=== PATIENT | female | born 1975 | race Hispanic/Latino ===

== ENCOUNTER 2022-05-28 12:48 | Outpatient (CLI) | payer BC ==
[2022-05-28 13:34] LABS: BHCG - Serum Negative (NEGATIVE)
[2022-05-28 13:35] LABS: Pregs Control Background? CLEAR/WHITE (CLR/WHITE); Pregs Control Bar Appear? YES (CONTROL BAR)
== END 2022-05-28 12:49 | disposition home or self-care (01) ==
LOC: NM 12:48
PROVIDERS: ATTEND Internal Medicine Endocrinology, Diabetes & Metabolism
DX: C73 Malignant neoplasm of thyroid gland (principal); E04.1 Nontoxic single thyroid nodule
CPT/HCPCS: 36415; 79005; 84703; A9517

== ENCOUNTER 2022-06-07 12:58 | Outpatient (CLI) | payer BC, OTHER | END 2022-06-07 12:59 | disposition home or self-care (01) | LOC: NM 12:58 | PROVIDERS: ATTEND Internal Medicine Endocrinology, Diabetes & Metabolism | DX: C73 Malignant neoplasm of thyroid gland (principal); E04.1 Nontoxic single thyroid nodule | CPT/HCPCS: 78018 ==